=== PATIENT | male | born 1980 | race African-American/Black ===

== ENCOUNTER 2024-05-30 12:27 | Emergency (ER) | payer SELFPAY ==
[~2024-05-30] VITALS: Ht 185.4 cm; Wt 86.2 kg
[2024-05-30 12:43] VITALS: BP 156/86; PULSE 76; RESP 16; TEMP 97.6; O2SAT 98
[2024-05-30 13:03] LABS: BASOPHIL % 0.2 % (0.2-1.2); EOSINOPHIL # 0.1 10^3/uL (0.0-0.2); EOSINOPHIL % 2.6 % (0.0-5.0); HEMATOCRIT(ML) 43.9 % (37.0-53.0); HEMOGLOBIN 14.5 g/dL (13.9-16.3); IG % 0.2 % (0.00-0.50); LYMPHOCYTES # 1.68 10^3/uL1 (1.0-4.8); LYMPHOCYTES % 33.3 % (24.0-44.0); MEAN CORP HGB 26.8 pg (26-34); MONOCYTES # 0.5 10^3/uL (0.3-0.8); MONOCYTES % 9.7 % (5.0-12.0); NEUTROPHIL # 2.7 10^3/uL (1.8-7.7); RED BLOOD CELL 5.42 10^6/uL (4.50-5.90); RED CELL DISTRIBUTION WIDTH 13.1 % (11.5-14.5); WHITE BLOOD CELL 5.1 10^3/uL (4.5-11.0)
[2024-05-30 13:17] LABS: PROTHROMBIN PROTIME 10.2 SEC (9.3-11.6)
[2024-05-30 13:19] LABS: ALBUMIN(ML) 3.8 g/dL (3.4-5.0); ALBUMIN/GLOBULIN RATIO 0.95; ANION GAP 8.4; BUN/CREATININE RATIO 10.44 (10.0-20.0); CALCIUM 9.2 mg/dL (8.4-10.5); CARBON DIOXIDE 32.6 mmol/L (20.0-32); CREATININE SERUM 1.34 mg/dL (0.59-1.40); EST GFR, NON-AA 58.5 (>/=60)
[2024-05-30 15:14] LABS: BILIRUBIN,URINE NEGATIVE (NEGATIVE); LEUKOCYTE ESTERASE ,URINE NEGATIVE (NEGATIVE); NITRATE,URINE NEGATIVE (NEGATIVE); PH,URINE 6.5 (4.5-8.0); UROBILINOGEN,URINE 0.2 E.U./dL (0.2)
[2024-05-30 15:15] LABS: APPEARANCE,URINE CLEAR; UA COLOR YELLOW
[2024-05-30] MEDS ORDERED: TORADOL ONE (15:34)
[2024-05-30] MEDS: TORADOL IV STA (15:35)
[2024-05-30 15:43] VITALS: BP 152/84; PULSE 78; RESP 16; TEMP 97.9; O2SAT 100
== END 2024-05-30 15:35 | disposition home or self-care (01) ==
LOC: ER 12:27
DX: K76.89 Other specified diseases of liver (principal)
CPT/HCPCS: 99285; 96374; 74177; 81003; 80053; 85025; 36415; 83690; 85610; 85730; J1885; Q9965